=== PATIENT | female | born 1980 | race Caucasian/White ===

== ENCOUNTER → 2024-06-06 13:38 | Outpatient (REF) | payer BC, SELFPAY | LOC: WDC 13:38 | PROVIDERS: ATTENDING PHYSICIAN Obstetrics & Gynecology Gynecology; FAMILY PHYSICIAN Nurse Practitioner Adult Health; OTHER PHYSICIAN Nuclear Medicine Nuclear Cardiology | DX: Z12.31 Encounter for screening mammogram for malignant neoplasm of breast (principal); I10 Essential (primary) hypertension | CPT/HCPCS: 93306 ==